=== PATIENT | male | born 1950 | race Caucasian/White ===

== ENCOUNTER → 2022-08-17 | Outpatient (CLI) | payer MEDICARE ==
--- NOTE | 2022-08-17 11:52 | BD ---
EXAMINATION TYPE: Axial Bone Density DATE OF EXAM: 08/17/2022 COMPARISON: NONE CLINICAL HISTORY: 71 years year old Male. ICD-10 CODE: S72.102A TROCHANTERIC FRACTURE OF LEFT FEMUR, Height: 5'6 1/2 Weight: 180 FRAX RISK QUESTIONS: History of Fracture in Adulthood: y Secondary Osteoporosis: RISK FACTORS HISTORY OF: Hip Fracture Left): y When: Surgery to /Hip/left)/Wrist /left): y When: Active: pt in w/c MEDICATIONS: Additional Medications: bladder, antibiotic for bladder Additional History: cancer rectal, chemotherapy EXAM MEASUREMENTS: Bone mineral densitometry was performed using the [facility]. Bone mineral density as measured about the Lumbar spine is: ----- L1-L4(G/cm2): 1.184 T Score Values are as follows: ----- L1: 0.3 ----- L2: 0.3 ----- L3: -0.3 ----- L4: -0.3 ----- L1-L4: 0.0 Bone mineral density about the R hip (g/cm2) 0.504 T Score values are as follows: -----R Neck: -3.8 -----R Total: -4.0 FRAX%s: The graph provided illustrates a 30.3% chance for a major osteoporotic fx and a 18.1% chance for the hips probability for fx in 10 years time. IMPRESSION: Osteoporosis (T Score less than -2.5). There is increased fracture risk and therapy is usually indicated based on age. Re-Screen 1-2 years. NOTE: T-SCORE=SD OF THE YOUNG ADULT MEAN.
== END | disposition home or self-care (01) ==
LOC: RADBDWWP 07:10
PROVIDERS: ATTEND Orthopaedic Surgery
DX: M81.0 Age-related osteoporosis without current pathological fracture (principal)
CPT/HCPCS: 77080

== ENCOUNTER → 2023-11-21 | Outpatient (CLI) | payer MEDICARE ==
--- NOTE | 2023-11-21 11:38 | US ---
EXAMINATION TYPE: US prostate transrectal DATE OF EXAM: 11/21/2023 COMPARISON: NONE CLINICAL INDICATION: Male, 73 years old with history of R97.2 ELEVATED PSA; Patient had a spinal cord contusion about 20 years ago and has had to self catheterize since. This examination was performed using the transrectal probe. EXAM MEASUREMENTS: Gland Size: 4.1 x 2.5 x 4.7 cm Volume: 24.85 mL Predicted PSA: 2.988 Actual PSA (if available):6.87; 06/30/2023 IMPRESSION: No suspicious mass. MRI prostate protocol is more sensitive for detection of clinically significant p rosthetic adenocarcinoma.
== END | disposition home or self-care (01) ==
LOC: RADUSWWP 10:17
PROVIDERS: ATTEND Family Medicine
DX: R97.20 Elevated prostate specific antigen [PSA] (principal)
CPT/HCPCS: 76872